=== PATIENT | female | born 1970 | race Caucasian/White ===

== ENCOUNTER 2021-07-04 12:51 | Emergency (ER) | payer MEDICARE, OTHER ==
[~2021-07-04] VITALS: Ht 157.5 cm; Wt 44.5 kg
--- NOTE | 2021-07-04 13:11 | NUR ---
BIB CAREGIVER FROM HOME,C/O SHORTNESS OF BREATH. PT AAOX4, VSS. RR EVEN & UNLABORED. DENIES CP, DIZZINESS, N/V AT THIS TIME. PLACED ON WIRE WALKER, SR. PT SEEN & EVAL'D BY DR. CASIANO. WILL CONT TO MONITOR.
[2021-07-04 13:40] LABS: BASOPHILS # (AUTO) 0.1 K/uL (0.0-0.2); BASOPHILS % (AUTO) 0.8 % (0.0-2.0); EOSINOPHILS % (AUTO) 0.8 % (0.0-6.0); HEMATOCRIT 36 % (33-45); HEMOGLOBIN 11.8 g/dL (11.5-14.8); LYMPHOCYTES # (AUTO) 2.3 K/uL (0.8-4.8); LYMPHOCYTES % (AUTO) 34.4 % (20.0-44.0); MEAN CORPUSCULAR HGB CONC 33 g/dl (31.0-36.0); MEAN CORPUSCULAR VOLUME 93 fL (82-100); MONOCYTES # (AUTO) 0.5 K/uL (0.1-1.30); MONOCYTES % (AUTO) 7.2 % (2.0-12.0); NEUTROPHILS # (AUTO) 3.8 K/uL (1.8-8.9); NEUTROPHILS % (AUTO) 56.8 % (43.0-81.0); PLATELET COUNT (AUTO) 347 K/uL (150-450); RED BLOOD CELL COUNT(AUTO) 3.85 MIL/uL (4.0-5.2); WHITE BLOOD COUNT (AUTO) 6.7 K/uL (4.3-11.0)
[2021-07-04 13:54] LABS: CALCIUM, SERUM 8.3 mg/dL (8.5-10.1); CARBON DIOXIDE 25 mmol/L (21-32); CHLORIDE 107 mmol/L (98-107); CREATININE 0.4 mg/dL (0.6-1.3); GLUCOSE 97 mg/dL (74-106); POTASSIUM 3.8 mmol/L (3.5-5.1); SODIUM SERUM 140 mmol/L (136-145); UREA NITROGEN, BLOOD 8 mg/dL (7-18)
[2021-07-04 14:06] LABS: ALANINE AMINOTRANSFERASE 11 U/L (12-78); ALBUMIN 3.6 g/dL (3.4-5.0); ALKALINE PHOSPHATASE 45 U/L (46-116); ASPARTATE AMINOTRANSFERASE 10 U/L (15-37); BILIRUBIN,DIRECT 0.1 mg/dL (0.0-0.2); BILIRUBIN,TOTAL 0.2 mg/dL (0.2-1.0); TOTAL PROTEIN, SERUM 6.8 g/dL (6.4-8.2)
[2021-07-04 16:18] VITALS: BP 120/70
--- NOTE | 2021-07-04 16:18 | NUR ---
Patient discharged to home in stable condition. Written and verbal after care instructions given. Patient verbalizes understanding of instruction.
== END 2021-07-04 16:19 | disposition home or self-care (01) ==
LOC: ER 12:51
DX: R06.00 Dyspnea, unspecified (principal); R06.02 Shortness of breath
CPT/HCPCS: 36415; 71045-TC; 80048-TC; 80076-TC; 82962-TC; 83880; 84484-TC; 85025-TC; 85378-TC; 85730-TC

== ENCOUNTER 2022-06-11 19:59 | Emergency (ER) | payer MEDICARE, OTHER ==
[~2022-06-11] VITALS: Ht 170.2 cm; Wt 59.0 kg
--- NOTE | 2022-06-11 21:00 | NUR ---
MAYTE FROM SNF FOR RIGHT SHOULDER DISLOCATION S/P "BEING TRANSFERRED", CAREGIVER AT BEDSIDE. PATIENT IS A/O, NO ACUTE DISRTESS NOTED, VSS. PT CONNECTED TO MONITORS.
--- NOTE | 2022-06-11 21:51 | NUR ---
[facility] ETA [id number]
--- NOTE | 2022-06-11 22:00 | NUR ---
[facility] CALLED FOR PT UPDATE
[2022-06-11 23:15] VITALS: BP 122/70
--- NOTE | 2022-06-11 23:15 | NUR ---
REPORT GIVEN TO EMS AT BEDSIDE
== END 2022-06-11 23:20 | disposition home or self-care (01) ==
LOC: ER 20:00
DX: S43.014A Anterior dislocation of right humerus, initial encounter (principal); F41.9 Anxiety disorder, unspecified; Z87.09 Personal history of other diseases of the respiratory system; X58.XXXA Exposure to other specified factors, initial encounter; Y93.89 Activity, other specified; Y92.89 Other specified places as the place of occurrence of the external cause; Y99.8 Other external cause status
CPT/HCPCS: 73030-TC

== ENCOUNTER 2023-03-07 11:55 | Inpatient (IN) | payer MEDICARE, OTHER ==
[~2023-03-07] VITALS: Ht 162.6 cm; Wt 36.3 kg
--- NOTE | 2023-03-07 12:10 | NUR ---
[facility] UNIT NUMBER [id number] ASSISTED BY 2 EMT. PT HAS APPOXIMATELY LOST 15LBS PER REPORT PT HAS TOUBLE SWALLOWING. PT HAS HX OF ALS FROM [facility].
--- NOTE | 2023-03-07 12:11 | NUR ---
MOVE SHEET SUBMITTED.
[2023-03-07 12:21] LABS: BASOPHILS # (AUTO) 0.1 K/uL (0.0-0.2); EOSINOPHILS % (AUTO) 9.9 % (0.0-6.0); HEMATOCRIT 42 % (33-45); HEMOGLOBIN 13.5 g/dL (11.5-14.8); LYMPHOCYTES % (AUTO) 37.7 % (20.0-44.0); MEAN CORPUSCULAR HGB CONC 32 g/dl (31.0-36.0); MEAN CORPUSCULAR VOLUME 91 fL (82-100); MONOCYTES # (AUTO) 0.4 K/uL (0.1-1.30); MONOCYTES % (AUTO) 7.3 % (2.0-12.0); NEUTROPHILS # (AUTO) 2.3 K/uL (1.8-8.9); NEUTROPHILS % (AUTO) 44.1 % (43.0-81.0); PLATELET COUNT (AUTO) 397 K/uL (150-450); RED BLOOD CELL COUNT(AUTO) 4.62 MIL/uL (4.0-5.2); WHITE BLOOD COUNT (AUTO) 5.2 K/uL (4.3-11.0)
[2023-03-07 12:38] LABS: CALCIUM, SERUM 8.7 mg/dL (8.5-10.1); CREATININE 0.2 mg/dL (0.6-1.3)
--- NOTE | 2023-03-07 13:51 | NUR ---
ROOM 113-1
--- NOTE | 2023-03-07 14:26 | NUR ---
report given to nurse Rasheed for parker
[2023-03-07] MEDS ORDERED: Z GUARD REMEDY 4 OZ OINT TP PRN (14:30)
[2023-03-07] MEDS ORDERED: MAGNESIUM HYDROXIDE 30 ML UDC PO PRN ×3 (14:30→17:30)
[2023-03-07] MEDS ORDERED: ACETAMINOPHEN 325 MG TABLET PO PRN ×2 (14:30→17:30)
[2023-03-07] MEDS ORDERED: MAG HYDROX/AL HYDROX/SIMETH 30 ML UDC PO PRN (14:30)
[2023-03-07] MEDS ORDERED: ONDANSETRON HCL/PF 4 MG/2 ML VIAL IVP PRN (14:30)
--- NOTE | 2023-03-07 14:30 | NUR ---
RECEIVED PT FROM ER VIA [facility]UG[facility], ACCOMPANIED BY FAMILY MEMBER. PT ON RA, SAT 98%, A/O X 4, NONVERBAL, ABLE TO COMMUNICATE THROUGH COMPUTER. ABLE TO USE BEDSIDE COMOD, WILL BE ON CLEAR LIQUID DIET, ASPIRATION PRECAUTIONS, MEDS CRUSHED AND MIXED WITH APPLE SAUCE. SAFETY MEASURES IMPLEMENTED. WILL CONTINUE TO MONITOR.
[2023-03-07] MEDS ORDERED: CRAN425C6 PO (14:44)
[2023-03-07] MEDS ORDERED: LACT10SO3 PO (14:44)
[2023-03-07] MEDS ORDERED: ALBU8.5H8 IH (14:44)
[2023-03-07] MEDS ORDERED: ONDA4TAB5 PO (14:44)
[2023-03-07] MEDS ORDERED: BACL20TA PO (14:44)
[2023-03-07] MEDS ORDERED: IBUP-1953 PO (14:44)
[2023-03-07] MEDS ORDERED: BISA10SU11 RC (14:44)
[2023-03-07] MEDS ORDERED: MELA5TAB21 PO (14:44)
[2023-03-07] MEDS ORDERED: IBUP-1955 PO (14:44)
[2023-03-07] MEDS ORDERED: MAGN400T26 PO (14:44)
[2023-03-07] MEDS ORDERED: MULT-447 PO (14:44)
[2023-03-07] MEDS ORDERED: [UNRECOGNIZED DRUG - CODE] PO (14:44)
[2023-03-07] MEDS ORDERED: NA P133E RC (14:44)
[2023-03-07] MEDS ORDERED: DOCU-141 PO (14:44)
[2023-03-07] MEDS ORDERED: LORA-259 PO (14:44)
[2023-03-07] MEDS ORDERED: MIRT-90 PO (14:44)
[2023-03-07] MEDS ORDERED: PANT20TA2 PO (14:44)
[2023-03-07] MEDS ORDERED: ACET-2605 PO (14:44)
[2023-03-07] MEDS ORDERED: MAGN400O6 PO (14:44)
[2023-03-07] MEDS ORDERED: SENN-261 PO (14:44)
[2023-03-07] MEDS ORDERED: DIPH25CA51 PO (14:44)
[2023-03-07] MEDS ORDERED: ASCO-340 PO (14:44)
[2023-03-07] MEDS ORDERED: ACET-868 PO (14:44)
[2023-03-07] MEDS ORDERED: OXYC5TAB3 PO (14:44)
[2023-03-07 16:00] VITALS: BP 126/77
[2023-03-07] MEDS ORDERED: ACETAMINOPHEN ES 500 MG TABLET PO PRN ×2 (17:30)
[2023-03-07] MEDS ORDERED: LORAZEPAM 1 MG TABLET PO PRN ×2 (17:30)
[2023-03-07] MEDS ORDERED: BISACODYL SUPP (10 MG) 10 MG/SUPP.RECT SUPP.RECT RC PRN ×2 (17:30)
[2023-03-07] MEDS ORDERED: diphenhydrAMINE HCL 25 MG CAPSULE PO PRN ×2 (17:30)
[2023-03-07] MEDS ORDERED: NA PHOS,M-B/NA PHOS,DI-BA 1 EA ENEMA RC PRN (17:30)
[2023-03-07] MEDS ORDERED: ALBUTEROL FS 2.5 MG/3 ML VIAL.NEB NEB PRN (17:30)
[2023-03-07] MEDS ORDERED: IBUPROFEN 600 MG TABLET PO PRN ×2 (17:30)
[2023-03-07] MEDS ORDERED: Medication Not On Formulary EA (Melatonin 5 MG) PO PRN (17:30)
[2023-03-07] MEDS ORDERED: ONDANSETRON 4 MG TAB.RAPDIS PO PRN (18:00)
[2023-03-07] MEDS ORDERED: LACTULOSE 10 G/15 ML UDC (PYXIS) PO PRN (18:00)
[2023-03-07] MEDS ORDERED: oxyCODONE IR immediate release 5 MG PO PRN (18:00)
[2023-03-07] MEDS ORDERED: IBUPROFEN 400 MG TABLET PO SCH (18:00)
[2023-03-07] MEDS: BACLOFEN (10 MG) 10 MG TABLET PO SCH ×2 (18:09→23:35)
[2023-03-07] MEDS: IBUPROFEN 400 MG TABLET PO SCH ×2 (18:10→23:35)
--- NOTE | 2023-03-07 20:03 | NUR ---
RN CLOSING NOTE PATIENT IN BED ON RA,BREATHING EVEN AND UNLABORED. IV ACCESS: RIGHT HAND #22G D5 1/2 NS RUNNING AT 75ML/HR, NO S/S OF INFILTRATION NOTED. HAS PUREWEECK DRAINING CLEAR URINE. SAFETY MEASURES IN PLACE: BED LOCKED AND IN LOW POSITION, SIDE RAILS UP X3, CALL LIGHT WITHIN REACH. WILL ENDORSE TO THE MARKETING GRAPHICS SPECIALIST FOR TIAT.
--- NOTE | 2023-03-07 20:05 | NUR ---
MS RN OPENING NOTE RECEIVED PATIENT FROM AM NURSE; PATIENT IS A/O X 4, ABLE TO MAKE NEEDS KNOWN, NON VERBAL BUT USES SENSOR COMPUTER TO COMMUNICATE; STABLE ON ROOM AIR, BREATHING EVENLY AND NO S/S OF DISTRESS NOTED; WITH IV ACCESS AT RIGHT HAND G#20 RUNNING WITH D5 1/2 NS AT 75 ML/HR; PUREWICK IN PLACE; NOTED BLISTERS ON BILATERAL HANDS AND FINGERS, PHOTOGRAPHED AND INSERTED INTO CHART; SAFETY MEASURES IMPLEMENTED, BED LOCKED IN LOWEST POSITION, SIDE RAILS UP X 2, CALL LIGHT AND TABLE WITHIN REACH; WILL CONTINUE TO MONITOR THROUGHOUT SHIFT
[2023-03-07] MEDS: SENNOSIDES 8.6 MG TABLET PO SCH (22:00)
[2023-03-07] MEDS: MIRTAZAPINE 15 MG TABLET PO SCH (22:00)
--- NOTE | 2023-03-07 22:02 | NUR ---
MS RN NOTE PATIENT REFUSED SENNOSIDES AND MIRTAZAPINE INFORMING THAT THE PATIENT ONLY TAKE THOSE MEDICATIONS NEEDED, WHICH IS VALIDATED BY GUARDIAN AT BEDSIDE VEE
[2023-03-08] VITALS: BP 120/80
[2023-03-08] MEDS: IV D5/0.45 NACL 1,000 ML IV PRN ×2 (04:06→18:30)
[2023-03-08] MEDS: IBUPROFEN 400 MG TABLET PO SCH ×4 (05:38→23:58)
[2023-03-08] MEDS: BACLOFEN (10 MG) 10 MG TABLET PO SCH ×4 (05:38→23:58)
--- NOTE | 2023-03-08 07:20 | NUR ---
MS RN OPENING NOTE PATIENT IS A/O X 4, ABLE TO MAKE NEEDS KNOWN, NON VERBAL BUT USES SENSOR COMPUTER TO COMMUNICATE; STABLE ON ROOM AIR, BREATHING EVENLY AND NO S/S OF DISTRESS NOTED AT THIS TIME. IV ACCESS AT RIGHT HAND G#20 RUNNING WITH D5 1/2 NS AT 75 ML/HR; PUREWICK IN PLACE; SAFETY MEASURES IMPLEMENTED, BED LOCKED IN LOWEST POSITION, SIDE RAILS UP X 2, CALL LIGHT AND TABLE WITHIN REACH;
[2023-03-08] MEDS: PANTOPRAZOLE 40 MG TABLET.DR PO SCH (07:30)
--- NOTE | 2023-03-08 07:41 | NUR ---
MS RN CLOSING NOTE PATIENT IS A/O X 4, ABLE TO MAKE NEEDS KNOWN, NON VERBAL BUT USES SENSOR COMPUTER TO COMMUNICATE; STABLE ON ROOM AIR, BREATHING EVENLY AND NO S/S OF DISTRESS NOTED; WITH IV ACCESS AT RIGHT HAND G#20 RUNNING WITH D5 1/2 NS AT 75 ML/HR; PUREWICK IN PLACE; SAFETY MEASURES IMPLEMENTED, BED LOCKED IN LOWEST POSITION, SIDE RAILS UP X 2, CALL LIGHT AND TABLE WITHIN REACH; ENDORSED TO AM NURSE FOR TITA.
[2023-03-08 08:00] VITALS: BP 156/96
--- NOTE | 2023-03-08 08:02 | NUR ---
WOUND CARE CONSULT: PT REFUSED SKIN ASSESSMENT. PER ADMISSION DOCUMENTATION AND PHOTO, PT HAS BLISTERS/LESIONS TO HANDS, PRESENT ON ADMISSION. PT IS EXTREMELY THIN. DISCUSSED SKIN PROTECTION WITH NURSING STAFF. FIRST STEP LOW AIRLOSS MATTRESS IS ON ORDER. DR SOUZA CONSULTED FOR HANDS. MD IN AGREEMENT WITH PLAN OF CARE.
[2023-03-08] MEDS: ASCORBIC ACID 500 MG TABLET PO SCH (09:00)
[2023-03-08] MEDS: MULTIVIT W/MINERALS 1 TAB TABLET PO SCH (09:00)
[2023-03-08] MEDS: DOCUSATE SODIUM 100 MG CAPSULE PO SCH ×2 (09:00→17:00)
[2023-03-08] MEDS ORDERED: MAGNESIUM OXIDE 400 MG TABLET PO SCH (09:00)
[2023-03-08] MEDS ORDERED: Medication Not On Formulary EA (Cranberry Extract (Cranberry) 425 MG) PO SCH (09:00)
[2023-03-08] MEDS ORDERED: DOCUSATE SODIUM 100 MG CAPSULE PO SCH (09:00)
[2023-03-08] MEDS: MAGNESIUM OXIDE 400 MG TABLET PO SCH (09:00)
[2023-03-08 09:53] LABS: BASOPHILS # (AUTO) 0.1 K/uL (0.0-0.2); BASOPHILS % (AUTO) 0.8 % (0.0-2.0); EOSINOPHILS % (AUTO) 7.2 % (0.0-6.0); HEMATOCRIT 41 % (33-45); HEMOGLOBIN 13.2 g/dL (11.5-14.8); LYMPHOCYTES # (AUTO) 1.8 K/uL (0.8-4.8); MEAN CORPUSCULAR HGB CONC 33 g/dl (31.0-36.0); MEAN CORPUSCULAR VOLUME 89 fL (82-100); MONOCYTES # (AUTO) 0.4 K/uL (0.1-1.30); MONOCYTES % (AUTO) 6.8 % (2.0-12.0); NEUTROPHILS # (AUTO) 3.4 K/uL (1.8-8.9); NEUTROPHILS % (AUTO) 56.2 % (43.0-81.0); PLATELET COUNT (AUTO) 383 K/uL (150-450); RED BLOOD CELL COUNT(AUTO) 4.55 MIL/uL (4.0-5.2)
[2023-03-08 10:06] LABS: CALCIUM, SERUM 8.4 mg/dL (8.5-10.1); CREATININE 0.2 mg/dL (0.6-1.3); MAGNESIUM 1.8 mg/dL (1.8-2.4); PHOSPHORUS 2.9 mg/dL (2.5-4.9); POTASSIUM 3.5 mmol/L (3.5-5.1)
[2023-03-08 12:00] VITALS: BP 156/96
[2023-03-08] MEDS: ENSURE CLEAR 237 ML LIQUID (MIX BERRY) PO SCH ×3 (13:00→18:51)
[2023-03-08 16:00] VITALS: BP 144/87
--- NOTE | 2023-03-08 18:35 | NUR ---
rn note per patient request wants 1800 ibuprofen and baclofen to be given at a later time
--- NOTE | 2023-03-08 19:40 | NUR ---
MS RN OPENING NOTES RECEIVED PATIENT IN BED AWAKE, ALERT AND ORIENTED. A/O X 4, NON VERBAL. ABLE TO MAKE NEEDS KNOWN USING SENSOR COMPUTER TO COMMUNICATE. STABLE ON ROOM AIR, BREATHING EVENLY AND NO S/S OF DISTRESS NOTED AT THIS TIME. IV ACCESS AT RIGHT HAND G#20 RUNNING WITH D5 1/2 NS AT 75 ML/HR. PUREWICK IN PLACE. SAFETY MEASURES IN PACE WITH BED IN LOWEST LOCKED POSITION. SIDE RAILS UP X 2, CALL LIGHT AND TABLE WITHIN REACH. WILL CONTINUE TO MONITOR THE PATIENT.
[2023-03-08 20:00] VITALS: BP 131/81
--- NOTE | 2023-03-08 20:20 | NUR ---
MS RN OPENING NOTE PATIENT IS A/O X 4, ABLE TO MAKE NEEDS KNOWN, NON VERBAL BUT USES SENSOR COMPUTER TO COMMUNICATE; STABLE ON ROOM AIR, BREATHING EVENLY AND NO S/S OF DISTRESS NOTED AT THIS TIME. IV ACCESS AT RIGHT HAND G#20 RUNNING WITH D5 1/2 NS AT 75 ML/HR; PUREWICK IN PLACE;DRAINING YELLOW COLOR TO GRAVITY. ALL SAFETY MEASURES IMPLEMENTED, BED LOCKED IN LOWEST POSITION, SIDE RAILS UP X 2, CALL LIGHT AND TABLE WITHIN REACH;BED ALARM ON Addendum: 03/08/23 at 2020 by MONISHA TAPIA RN MS CLOSING NOTE
[2023-03-08] MEDS: MIRTAZAPINE 15 MG TABLET PO SCH (22:00)
[2023-03-08] MEDS: SENNOSIDES 8.6 MG TABLET PO SCH (22:00)
[2023-03-09] VITALS: BP 130/60
--- NOTE | 2023-03-09 03:30 | NUR ---
RN NOTES PATIENT C/O OF HAVING MUCUS AND REQUESTED FOR A DEEP SUCTION. RT INFORMED AND SUCTIONED THE PATIENT. WILL CONTINUE TO MONITOR THE PATIENT.
[2023-03-09] MEDS: IBUPROFEN 400 MG TABLET PO SCH ×3 (05:44→18:00)
[2023-03-09] MEDS: BACLOFEN (10 MG) 10 MG TABLET PO SCH ×3 (05:44→18:00)
[2023-03-09] MEDS: IV D5/0.45 NACL 1,000 ML IV PRN (06:05)
--- NOTE | 2023-03-09 07:27 | NUR ---
MS RN CLOSING NOTES PATIENT IN BED AWAKE, ALERT AND ORIENTED. A/O X 4, NON VERBAL. ABLE TO MAKE NEEDS KNOWN USING SENSOR COMPUTER TO COMMUNICATE. STABLE ON ROOM AIR, BREATHING EVENLY AND NO S/S OF DISTRESS NOTED AT THIS TIME. IV ACCESS AT RIGHT HAND G#20 RUNNING WITH D5 1/2 NS AT 75 ML/HR. PUREWICK IN PLACE. SAFETY MEASURES IN PACE WITH BED IN LOWEST LOCKED POSITION. SIDE RAILS UP X 2, CALL LIGHT AND TABLE WITHIN REACH. WILL ENDORSE TO THE NEXT SHIFT.
[2023-03-09] MEDS: PANTOPRAZOLE 40 MG TABLET.DR PO SCH (07:30)
--- NOTE | 2023-03-09 07:40 | NUR ---
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
[2023-03-09 08:00] VITALS: BP 130/81
[2023-03-09] MEDS: ENSURE CLEAR 237 ML LIQUID (MIX BERRY) PO SCH ×3 (08:00→16:40)
[2023-03-09] MEDS: MAGNESIUM OXIDE 400 MG TABLET PO SCH (08:44)
[2023-03-09] MEDS: ASCORBIC ACID 500 MG TABLET PO SCH (08:44)
[2023-03-09] MEDS: DOCUSATE SODIUM 100 MG CAPSULE PO SCH ×2 (08:44→16:40)
[2023-03-09] MEDS: MULTIVIT W/MINERALS 1 TAB TABLET PO SCH (08:44)
--- NOTE | 2023-03-09 09:20 | NUR ---
ms rn npo at this time for surgery, all needs attended.
--- NOTE | 2023-03-09 13:30 | NUR ---
ms rn patient went down for procedure.
[2023-03-09 16:00] VITALS: BP 132/76
--- NOTE | 2023-03-09 19:05 | NUR ---
ms rn patient just came back from [place], s/p peg tube placement, no distress noted, endorse to shift production supervisor for [facility],
--- NOTE | 2023-03-09 19:30 | NUR ---
MS RN OPENING NOTES RECEIVED PATIENT IN BED AWAKE, A/O X 4, NON VERBAL. ABLE TO MAKE NEEDS KNOWN USING SENSOR COMPUTER TO COMMUNICATE. STABLE ON ROOM AIR, BREATHING EVEN AND UNLABORED.NO S/S OF DISTRESS NOTED AT THIS TIME. MALE FRIEND AT THE BED SIDE. PATIENT S/P OF THE PEG TUBE PLACEMENT. WILL START FEEDING AND MEDICATION ADMINISTRATION TOMORROW AM. THE MALE FRIEND INSTRUCTED US HOW TO HELP, CLEAN AND COMMUNICATE WITH THE PATIENT. IV ACCESS AT RIGHT HAND G#20 RUNNING WITH D5 NS AT 75 ML/HR. PUREWICK IN PLACE. ALL SAFETY MEASURES IN PACE WITH BED IN LOWEST LOCKED POSITION. SIDE RAILS UP X 2, CALL LIGHT AND TABLE WITHIN REACH. WHEN GOT THE SHIFT PATIENT CAME BACK FROM SURGERY OF PEG TUBE PLACEMENT. NO BLEEDING NOTED AT THE TIME. VITAL SIGNS WAS IN NORMAL RANGES. PATIENT ASKED FOR PRN MOTRIN. IN ORDER MENTIONED GTUBE FEEDING AND MEDICATION WILL START TOMORROW MORNING. I ASKED PATIENT IF SHE WILL TAKE IV PAIN MEDICATION, PATIENT REFUSED. PATIENT'S MALE FRIEND STATED PATIENT CAN TAKE ORAL MEDICATION, CRUSHED WITH APPLE JUICE AND WATER. INFORMED DAYAN LOGAN. SHE STATED IF PATIENT IS TOLERATING ORALLY I CAN GIVE THE MEDICATIONS. I GAVE 600 MOTRIN AT 2012. CRUSHED AND WITH APPLE JUICE AND WATER. PATIENT TOLERATED THE MEDICATION WELL. WILL CONTINUE TO MONITOR THE PATIENT.
--- NOTE | 2023-03-09 20:15 | NUR ---
RN NOTES PRN MOTRIN 600 MG GIVEN FOR PAIN PER PATIENT'S REQUEST. CRUSHED AND GAVE THE PILL WITH APPLE JUICE AND WATER. WILL ASSESS IN 1 HOUR.
[2023-03-09] MEDS: IV D5/ 0.9% NACL 1,000 ML IV SCH (20:29)
[2023-03-09] MEDS: SENNOSIDES 8.6 MG TABLET PO SCH (21:52)
[2023-03-09] MEDS: MIRTAZAPINE 15 MG TABLET PO SCH (21:52)
[2023-03-10] VITALS: BP 119/70
[2023-03-10] MEDS: BACLOFEN (10 MG) 10 MG TABLET PO SCH ×3 (05:14→12:46)
[2023-03-10] MEDS: IBUPROFEN 400 MG TABLET PO SCH ×3 (05:14→12:45)
--- NOTE | 2023-03-10 06:49 | NUR ---
MS RN CLOSING NOTES PATIENT IN BED AWAKE, A/O X 4, NON VERBAL. ABLE TO MAKE NEEDS KNOWN USING SENSOR COMPUTER TO COMMUNICATE. STABLE ON ROOM AIR, BREATHING EVEN AND UNLABORED.NO S/S OF DISTRESS NOTED AT THIS TIME. PATIENT S/P OF THE PEG TUBE PLACEMENT. WILL START FEEDING AND MEDICATION ADMINISTRATION THIS AM. THE MALE FRIEND INSTRUCTED US HOW TO HELP, CLEAN AND COMMUNICATE WITH THE PATIENT. IV ACCESS AT RIGHT HAND G#20 RUNNING WITH D5 NS AT 75 ML/HR. PUREWICK IN PLACE. DRAINED 200 ML URINE OUTPUT. ALSO AFTER SURGERY THE DIAPER WAS SOAKED IN URINE. PATIENT REFUSED MEDICATIONS EXCEPT ONE PRN MOTRIN. SINCE STATING THE MEDICATIONS ARE BITTER. ALL SAFETY MEASURES IN PACE WITH BED IN LOWEST LOCKED POSITION. SIDE RAILS UP X 2, CALL LIGHT AND TABLE WITHIN REACH. S/P OF PEG TUBE PLACEMENT. NO BLEEDING NOTED AT THE TIME. ALL NEEDS ATTENDED. WILL ENDORSE FOR TITA.
--- NOTE | 2023-03-10 07:05 | NUR ---
RN OPENING NOTE RECEIVED PATIENT IN BED AWAKE, A/O X 4, NON VERBAL. ABLE TO MAKE NEEDS KNOWN USING SENSOR COMPUTER TO COMMUNICATE. STABLE ON ROOM AIR, BREATHING EVEN AND UNLABORED.NO S/S OF DISTRESS NOTED AT THIS TIME. PATIENT S/P OF THE PEG TUBE PLACEMENT. WILL START FEEDING AND MEDICATION ADMINISTRATION TODAY. IV ACCESS AT RIGHT HAND G#20 RUNNING WITH D5 NS AT 75 ML/HR. PUREWICK IN PLACE. ALL SAFETY MEASURES IN PACE WITH BED IN LOWEST LOCKED POSITION. SIDE RAILS UP X 2, CALL LIGHT AND TABLE WITHIN REACH. WILL CONTINUE TO MONITOR THE PATIENT.
[2023-03-10 08:00] VITALS: BP 119/70
[2023-03-10] MEDS: ENSURE CLEAR 237 ML LIQUID (MIX BERRY) PO SCH ×2 (08:13→12:43)
[2023-03-10] MEDS: PANTOPRAZOLE 40 MG TABLET.DR PO SCH (08:13)
[2023-03-10] MEDS: MAGNESIUM OXIDE 400 MG TABLET PO SCH (08:37)
[2023-03-10] MEDS: ASCORBIC ACID 500 MG TABLET PO SCH (08:37)
[2023-03-10] MEDS: MULTIVIT W/MINERALS 1 TAB TABLET PO SCH (08:37)
[2023-03-10] MEDS: DOCUSATE SODIUM 100 MG CAPSULE PO SCH (08:37)
[2023-03-10] MEDS: IV D5/ 0.9% NACL 1,000 ML IV SCH (09:33)
[2023-03-10] MEDS ORDERED: JEVITY 1.2 CAL 1,000 ML BOTTLE GT PRN (10:30)
[2023-03-10] MEDS ORDERED: JEVITY 1.2 CAL 1,000 ML BOTTLE GT STA (10:47)
--- NOTE | 2023-03-10 13:45 | NUR ---
PAT[facility] DISCHARGED, [facility], ACCOMPANIED BY FAMILY MEMBER. CONDITION STABLE, G-TUBE WORKING PROPERLY, MEDS ADMINISTERED THROUGH G-TUBE, NO RESIDUAL. REPORT GIVEN OVER THE PHONE TO THE [facility] CHARGE NURSE.
== END 2023-03-10 13:58 | DRG 56 ==
LOC: ER 12:00 → MEDSG1 14:15
PROVIDERS: ADMIT Internal Medicine; ATTEND Internal Medicine
PROC: 0DH63UZ Insertion of Feeding Device into Stomach, Percutaneous Approach (ICD-10-PCS; principal; 2023-03-09)
DX: G12.21 Amyotrophic lateral sclerosis (principal); E43 Unspecified severe protein-calorie malnutrition; R64 Cachexia; Z68.1 Body mass index [BMI] 19.9 or less, adult; E87.1 Hypo-osmolality and hyponatremia; R62.7 Adult failure to thrive; R13.10 Dysphagia, unspecified; F41.9 Anxiety disorder, unspecified; Z20.822 Contact with and (suspected) exposure to COVID-19; K29.70 Gastritis, unspecified, without bleeding; Z95.1 Presence of aortocoronary bypass graft; Z79.899 Other long term (current) drug therapy; E86.1 Hypovolemia; E88.09 Other disorders of plasma-protein metabolism, not elsewhere classified; G89.29 Other chronic pain; Z87.39 Personal history of other diseases of the musculoskeletal system and connective tissue; S60.522A Blister (nonthermal) of left hand, initial encounter; S60.521A Blister (nonthermal) of right hand, initial encounter; X58.XXXA Exposure to other specified factors, initial encounter; Y92.9 Unspecified place or not applicable; Z74.01 Bed confinement status; M62.422 Contracture of muscle, left upper arm; M62.421 Contracture of muscle, right upper arm
CPT/HCPCS: 36415; 43246; 80048-TC; 83735-TC; 84100-TC; 85025-TC; 85730-TC; 87081-TC; 92526; 92611-TC; A4223; C9803; G0378; J0690; J2704; J3490; J7042